=== PATIENT | male | born 1970 | race Hispanic/Latino ===

== ENCOUNTER 2024-09-15 10:59 | Inpatient (IN) | payer OTHER ==
[~2024-09-15] VITALS: Ht 167.6 cm; Wt 70.3 kg
[2024-09-15 11:23] LABS: APPEARANCE,URINE CLEAR (CLEAR); BILIRUBIN,URINE NEGATIVE (NEGATIVE); COLOR,URINE LIGHT-YELLOW (YELLOW); GLUCOSE, URINE (UA) NEGATIVE (NEGATIVE); KETONES,URINE NEGATIVE (NEGATIVE); LEUKOCYTE ESTERASE ,URINE NEGATIVE Leu/uL (NEGATIVE); NITRATE,URINE NEGATIVE (NEGATIVE); OCCULT BLOOD,URINE NEGATIVE (NEGATIVE); PH,URINE 6.5 (5.0-8.0); PROTEIN,URINE NEGATIVE (NEGATIVE); UROBILINOGEN,URINE 0.2 mg/dL (0.2-1.0); WBC,URINE 0-1 /HPF (0-1)
--- NOTE | 2024-09-15 11:24 | NUR ---
PT JUST NOW PLACED ON 2 L VIA N/C
[2024-09-15 11:31] LABS: BASOPHILS # (AUTO) 0.04 K/uL (0.00-0.20); BASOPHILS % (AUTO) 0.5 % (0.0-5.0); EOSINOPHILS % (AUTO) 4.7 % (0.0-8.0); HEMATOCRIT 43.9 % (42-54); IMMATURE GRANULOCYTE ABSOLUTE 0.02 K/uL (0-1); LYMPHOCYTES # (AUTO) 2.2 K/uL (1.0-4.8); LYMPHOCYTES % (AUTO) 25.3 % (21.0-51.0); MEAN CORPUSCULAR HEMOGLOBIN 30.2 pg (27.0-33.0); MEAN CORPUSCULAR HGB CONC 34.2 g/dL (32.0-36.0); MEAN CORPUSCULAR VOLUME 88.5 fL (79-99); MONOCYTES # (AUTO) 0.7 K/uL (0.1-1.0); MONOCYTES % (AUTO) 7.8 % (3.0-13.0); NEUTROPHILS # (AUTO) 5.2 K/uL (1.8-7.7); NEUTROPHILS % (AUTO) 61.5 % (40.0-77.0); PLATELET COUNT (AUTO) 216 K/uL (130-400); RED BLOOD CELL COUNT(AUTO) 4.96 MIL/uL (4.50-6.20); WHITE BLOOD COUNT (AUTO) 8.5 K/uL (4.8-10.8)
--- NOTE | 2024-09-15 11:32 | ERN ---
General Chief Complaint: Chest Pain Stated Complaint: CP Time Seen by MD: 11:04 Time Seen by Midlevel: 11:04 Source: patient History of Present Illness Initial Comments 54 y/o male presents to the emergency department due to chest pain and shortness of breath onset today. Patient reports he was seen yesterday at [facility] ED due to the lower extremity numbness and was diagnosed with a TIA, patient left AMA. Patient reports he has been having a productive cough for the past week but denies any fever, abdominal pain or further associated symptoms. Patient has previously been diagnosed with monoclonal gammopathy. He is seeing oncologist Dr. Rosa and receiving B12 vitamin injections. Allergies: Coded Allergies: No Known Drug Allergies (Unverified Allergy, Unknown, 09/15/24) Past Medical History Past Medical History: TIA, Other Medical History Other: monoclonal gammopathy Past Surgical History: None ROS Dictation Constitutional: Negative for fever,chills, and weight loss Eyes: Negative for injury, pain,redness, and discharge ENT: Negative for injury,pain or swelling Cardiovascular: Positive for chest pain Negative for palpitations, and edema Respiratory: Positive for shortness of breath, productive cough Negative for wheezing Abdomen/GI: Negative for abdominal pain, nausea, vomiting, diarrhea, and constipation Back: Negative for injury and pain : Negative for painful urination, bleeding or discharge MS/Extremity: Negative for injury and deformity Skin: Negative for rash, and discoloration Neuro: Positive for upper lip numbness, right leg weakness, numbness Negative for headache, tingling, and seizure Psych: Negative for suicide ideation, homicidal ideation, and hallucinations Physical Exam Physical Exam Dictation General: awake, alert, no acute distress Head/Face: Normocephalic, atraumatic Eyes: PERRL, EOMI, normal conjunctiva ENT: oral cavity clear, oral mucosa moist Neck: Supple, normal range of motion Cardiovascular: RRR, normal S1/S2 Respiratory: CTAB, no respiratory distress, no rales or wheezes Abdomen: Soft, non-tender, non-distended, no guarding or rebound. Skin: Warm, dry, normal turgor, no rash MS/Extremity: Pulses equal, no cyanosis, neurovascular intact, FROM Neuro: COAx4, GCS 15, strength 5/5, CN 2-12 intact, normal cerebellar exam. Weakness and a drift noted to the right lower extremities Psych: Normal behavior, mood, and affect normal NIH STROKE SCALE: NIH STROKE SCALE Response (Comments) Value Level of Consciousness Alert 0 Ask patient month and their age Answers both correct 0 Command to open eyes, make fist and let go Obeys both correct 0 Best gaze (horizontal eye movement) Normal 0 Visual Field Testing No Visual Field Loss 0 Facial Paresis Normal / Symmetrical 0 Motor Function - Left Arm Normal 0 Motor Function - Right Arm Normal 0 Motor Function - Left Leg Normal 0 Motor Function - Right Leg Drift 1 Limb Ataxia No Ataxia 0 Sensory-pin prick to arms, legs, trunk and face Normal 0 Best Language (describe picture, name items and read) No Aphasia 0 Dysarthria (read several words) Normal Articulation 0 Extinction and Inattention Normal 0 Total 1 Results Laboratory and Microbiology Lab and Micro Result Laboratory Tests Test 09/15/24 11:11 09/15/24 11:25 09/15/24 11:35 Urine Color LIGHT-YELLOW (YELLOW) Urine Appearance CLEAR (CLEAR) Urine pH 6.5 (5.0-8.0) Urine Specific [place] 1.009 (1.001-1.031) Urine Protein NEGATIVE mg/dL (NEGATIVE) Urine Glucose (UA) NEGATIVE mg/dL (NEGATIVE) Urine Ketones NEGATIVE mg/dL (NEGATIVE) Urine Occult Blood NEGATIVE (NEGATIVE) Urine Nitrate NEGATIVE (NEGATIVE) Urine Bilirubin NEGATIVE mg/dL (NEGATIVE) Urine Urobilinogen 0.2 mg/dL (0.2-1.0) Urine Leukocyte Esterase NEGATIVE Claudia/uL Urine RBC None /HPF (0-1) Urine WBC 0-1 /HPF (0-1) Urine Bacteria None /HPF (None Seen) White Blood Count 8.5 K/uL (4.8-10.8) Red Blood Count 4.96 MIL/uL (4.50-6.20) Hemoglobin 15.0 g/dL (14.0-18.0) Hematocrit 43.9 % (42-54) Mean Corpuscular Volume 88.5 fL (79-99) Mean Corpuscular Hemoglobin 30.2 pg (27.0-33.0) Mean Corpuscular Hemoglobin Concent 34.2 g/dL (32.0-36.0) Red Cell Distribution Width 13.0 % (11.0-15.5) Platelet Count 216 K/uL (130-400) Mean Platelet Volume 8.9 fL (7.5-10.5) Immature Granulocyte % (Auto) 0.2 % (0-1) Neutrophils (%) (Auto) 61.5 % (40.0-77.0) Lymphocytes (%) (Auto) 25.3 % (21.0-51.0) Monocytes (%) (Auto) 7.8 % (3.0-13.0) Eosinophils (%) (Auto) 4.7 % (0.0-8.0) Basophils (%) (Auto) 0.5 % (0.0-5.0) Neutrophils # (Auto) 5.2 K/uL (1.8-7.7) Lymphocytes # (Auto) 2.2 K/uL (1.0-4.8) Monocytes # (Auto) 0.7 K/uL (0.1-1.0) Eosinophils # (Auto) 0.40 K/uL (0.00-0.70) Basophils # (Auto) 0.04 K/uL (0.00-0.20) Absolute Immature Granulocyte (auto 0.02 K/uL (0-1) Nucleated Red Blood Cells 0.0 % (0.0-0.19) Prothrombin Time 9.8 SEC (9.6-11.6) Prothromb Time International Ratio <= 0.93 (0.85-1.15) Activated Partial Thromboplast Time 31.9 SEC (26.3-35.5) Sodium Level 139 mmol/L (136-145) Potassium Level 4.1 mmol/L (3.5-5.1) Chloride Level 105 mmol/L (101-111) Carbon Dioxide Level 30 mmol/L (21-32) Blood Urea Nitrogen 11 mg/dL (7-18) Creatinine 0.9 mg/dL (0.5-1.3) Glomerular Filtration Rate Calc 101 mL/min (>90) Random Glucose 113 mg/dL (70-105) H Total Calcium 8.9 mg/dL (8.5-10.1) Troponin I High Sensitivity 5 ng/L (4-75) B-Type Natriuretic Peptide < 5 pg/mL (0-100) Influenza Type A Antigen Negative For Type A Influenza Type B Antigen Negative For Type B SARS-CoV-2 Antigen (Rapid) PRESUMPTIVE NEGATIVE Labs Reviewed?: Yes EKG/XRAY/US/CT/MRI EKG Comment Date: 09/15/24 Time: 1055 Rate: 84 EKG interpretation: Sinus rhythm, LAD consider left anterior fascicular block, no STEMI Reviewed by ED Attending X-RAY Comment REASON: chest pain ORDERING PHYSICIAN: SERENA LEWIS PROCEDURE: CXR1VW - CHEST 1VW INDICATION: chest pain TECHNIQUE: CHEST 1VW COMPARISON: None FINDINGS AND IMPRESSION: Prominent bibasilar interstitial markings which may represent bronchitis or vascular congestion in the proper clinical setting. Cardiac silhouette is within normal limits. Mild degenerative changes of the spine. The visualized upper abdomen appears unremarkable. DICTATED BY: RUT GUERRERO MD DATE: 09/15/[address] Scan Comment REASON: Numbness, Hx TIA ORDERING PHYSICIAN: SERENA LEWIS PROCEDURE: HEAD WO - CT HEAD/BRAIN W/O CONTRAST CT HEAD/BRAIN W/O CONTRAST INDICATION: Numbness, Hx TIA TECHNIQUE: CT HEAD/BRAIN W/O CONTRAST. CT was performed with one or more of the following dose reduction techniques: Automated exposure control, adjustment of the mA and/or kV according to the patient's size, or use of the iterative reconstruction technique. Comparison: None FINDINGS: The ventricles and extra ventricular CSF spaces are within normal limits. No mass effect, midline shift or herniation. No extra axial collection. No acute intracranial bleed. The visualized paranasal sinuses and mastoid air cells are normally aerated. IMPRESSION: No acute intracranial findings. DICTATED BY: RUT GUERRERO MD DATE: 09/15/24 1220 MDM MDM: Differential diagnosis: TIA, CVA, [place], pneumonia Rationale: 54 y/o male presents to the emergency department due to chest pain and shortness of breath onset today. Patient reports he was seen yesterday at [facility] ED due to the lower extremity numbness and was diagnosed with a TIA, patient left AMA. Patient reports he has been having a productive cough for the past week but denies any fever, abdominal pain or further associated symptoms. Patient has previously been diagnosed with monoclonal gammopathy. He is seeing oncologist Dr. Rosa and receiving B12 vitamin injections. On initial vitals patient is stable. Patient denied any current chest pain. Per physical examination patient is in no acute distress, nonlabored breathing, abdomen is soft nontender, no chest tenderness. Patient placed on 2 L of O2 nasal cannula for comfort measures, due to O2 saturations fluctuating between 94 and 96%. NIH score of 1 due to right lower extremity drift. Labs obtained CBC within normal limits, chemistry normal, troponin negative, PT and PTT normal. UA negative for urinary tract infections. Influenza and SARs negative. Chest x- ray obtained indicating prominently bibasilar interstitial markings representing bronchitis otherwise no acute findings. Head CT shows no acute intracranial findings. Patient was educated on findings, diagnosis, decision for admission. Patient verbalized understanding and agrees with admission. Case discussed with hospitalist Dr. Bray who requested neurologist to be consulted to confirm he is on board on the case otherwise recommended transfer to [facility]. cell room supervisor discussed case with neurologist Dr. Washington who accepted. Previous outside records reviewed: Old ER visits. Risk of complication and/or morbidity or mortality of patient management: None Medications-Per medication reconciliation Need for hospitalization: Patient does meet criteria for hospitalization. Need for emergency major/minor surgery: No There are no social concerns with this patient. Prescription drug management Prescriptions will include symptomatic care Patient's prior external medical records from other ER visits were reviewed by me as indicated. Prior testing and results from previous visits were reviewed. Prior tests were taken into account with medical decision making and resource utilization, independent historian/historians were used to obtain complete m edical history. I independently interpreted the test that were performed, results were reviewed by me and considered findings on radiology if ordered. Medical management and examination interpretation discussions were had by me with other qualified healthcare professionals as indicated for the patient's care. ED Course Orders Procedure Category Date Status Time Cbc With Differential LAB 09/15/24 Complete 11:11 Basic Metabolic Panel LAB 09/15/24 Complete 11:11 Urinalysis LAB 09/15/24 Complete W/Microscopic 11:11 B-Type Natriuretic LAB 09/15/24 Complete Peptide 11:11 Troponin I High LAB 09/15/24 Complete Sensitivity 11:11 12 Lead Ekg Tracing- EKG 09/15/24 Complete Technical 11:11 Pt And Ptt LAB 09/15/24 Complete 11:11 Chest 1vw RAD 09/15/24 Resulted 11:11 Covid19 (Sars Antigen LAB 09/15/24 Complete Rapid) 11:20 Influenza Type A & B, LAB 09/15/24 Complete Rapid 11:20 Ct Head/Brain W/O CT 09/15/24 Resulted Contrast 11:25 Vital Signs Date Time Temp Pulse Resp B/P (MAP) Pulse Ox O2 Delivery O2 Flow Rate FiO2 09/15/24 11:04 98.2 89 20 122/79 96 Room Air* 0 21 09/15/24 11:00 98.2 89 20 122/79 DX & DISP Disposition: Inpatient Decision to Admit Date: Sep 15, 2024 Departure Impression: Primary Impression: TIA (transient ischemic attack) Additional Impression: Numbness of right lower extremity Condition: Stable Referrals: SELF,REFERRAL (PCP) I performed the substantive portion of the visit. I have reviewed and personally made and approve the management plan that is documented in the notes by myself or the FAUSTINA. I acknowledge full responsibility for the patient's management plan. SERENA LEWIS Sep 15, 2024 11:32
[2024-09-15 11:38] LABS: CREATININE 0.9 mg/dL (0.5-1.3); POTASSIUM 4.1 mmol/L (3.5-5.1)
[2024-09-15 11:41] LABS: INR <= 0.93 (0.85-1.15); PROTHROMBIN TIME 9.8 SEC (9.6-11.6)
[2024-09-15 11:42] LABS: PARTIAL THROMBOPLASTIN TIME 31.9 SEC (26.3-35.5)
[2024-09-15 11:58] LABS: B-TYPE NATRIURETIC PEPTIDE < 5 pg/mL (0-100)
[2024-09-15 12:07] LABS: COVID19 (SARS ANTIGEN RAPID) PRESUMPTIVE NEGATIVE (NEGATIVE); INFLUENZA TYPE A Negative For Type A (NEGATIVE); INFLUENZA TYPE B Negative For Type B (NEGATIVE)
--- NOTE | 2024-09-15 12:23 | HMCIMG ---
CT HEAD/BRAIN W/O CONTRAST INDICATION: Numbness, Hx TIA TECHNIQUE: CT HEAD/BRAIN W/O CONTRAST. CT was performed with one or more of the following dose reduction techniques: Automated exposure control, adjustment of the mA and/or kV according to the patient's size, or use of the iterative reconstruction technique. Comparison: None FINDINGS: The ventricles and extra ventricular CSF spaces are within normal limits. No mass effect, midline shift or herniation. No extra axial collection. No acute intracranial bleed. The visualized paranasal sinuses and mastoid air cells are normally aerated. IMPRESSION: No acute intracranial findings.
--- NOTE | 2024-09-15 12:36 | NUR ---
Patient stated he does not take any home medications.
--- NOTE | 2024-09-15 13:03 | HMCIMG ---
INDICATION: chest pain TECHNIQUE: CHEST 1VW COMPARISON: None FINDINGS AND IMPRESSION: Prominent bibasilar interstitial markings which may represent bronchitis or vascular congestion in the proper clinical setting. Cardiac silhouette is within normal limits. Mild degenerative changes of the spine. The visualized upper abdomen appears unremarkable.
--- NOTE | 2024-09-15 13:48 | EKG ---
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
--- NOTE | 2024-09-15 17:09 | NUR ---
vital signs before patient was transfered: blood pressure 104/76 mmHg o2 saturation 99% respirations 19 p/min pulse 74 p/min temperature 98.2
[2024-09-15 17:38] VITALS: BP 108/72; PULSE 66; RESP 16; TEMP 97.9
--- NOTE | 2024-09-15 18:31 | HMCIMG ---
Exam Type: MR BRAIN WO CON Clinical Information: R/O CVA OR TIA Comparison: None Technique: T1 weighed sagittal, T1-weighted axial, T2-weighted axial, diffusion, apparent diffusion, exponential diffusion weighted axial, T2-weighted FLAIR sagittal, coronal and axial images of the brain. Findings: The examination is unremarkable. Ortega-white matter junction is preserved. No intra or extra axial lesions or fluid collections are seen. There are no infarcts. There are no hemorrhages. Signal intensity is normal throughout the periventricular white matter locations. The orbital contents and structures of the posterior fossa are intact. The sella and its contents and the structures of the skull base are intact as well. Impression: Normal exam without gadolinium.
[2024-09-15 20:00] VITALS: BP 121/73; PULSE 72; RESP 20; TEMP 98.5
[2024-09-15 21:11] VITALS: O2SAT 100
[2024-09-16] VITALS (9 sets, daily range): BP systolic 99–120; BP diastolic 66–76; PULSE 64–81; RESP 16–20; TEMP 98–98.4; O2SAT 94–100
[2024-09-16 05:15] LABS: BASOPHILS # (AUTO) 0.03 K/uL (0.00-0.20); BASOPHILS % (AUTO) 0.5 % (0.0-5.0); EOSINOPHILS # (AUTO) 0.47 K/uL (0.00-0.70); EOSINOPHILS % (AUTO) 7.7 % (0.0-8.0); HEMATOCRIT 42.5 % (42-54); IMMATURE GRANULOCYTE ABSOLUTE 0.02 K/uL (0-1); LYMPHOCYTES # (AUTO) 2.2 K/uL (1.0-4.8); LYMPHOCYTES % (AUTO) 36.1 % (21.0-51.0); MEAN CORPUSCULAR HEMOGLOBIN 30.6 pg (27.0-33.0); MEAN CORPUSCULAR HGB CONC 34.6 g/dL (32.0-36.0); MEAN CORPUSCULAR VOLUME 88.4 fL (79-99); MONOCYTES # (AUTO) 0.6 K/uL (0.1-1.0); NEUTROPHILS # (AUTO) 2.8 K/uL (1.8-7.7); NEUTROPHILS % (AUTO) 45.4 % (40.0-77.0); PLATELET COUNT (AUTO) 208 K/uL (130-400); RED BLOOD CELL COUNT(AUTO) 4.81 MIL/uL (4.50-6.20); RED CELL DISTRIBUTION WIDTH 12.9 % (11.0-15.5); WHITE BLOOD COUNT (AUTO) 6.1 K/uL (4.8-10.8)
[2024-09-16 05:22] LABS: ALBUMIN 3.5 g/dL (3.5-5.0); BILIRUBIN,TOTAL 0.5 mg/dL (0.2-1.0); POTASSIUM 4.3 mmol/L (3.5-5.1); TOTAL PROTEIN, SERUM 6.1 g/dL (6.0-8.3)
[2024-09-16] MEDS: ASPIRIN 81 MG EC TAB PO SCH (09:58)
--- NOTE | 2024-09-16 14:33 | NUR ---
DCP: HOME Pt currently living with his mother and aunt in a mobile home with ramp. Pt works a [employer], is independent of his ADLS, drives, no DME or in home care services. PCP is Sandra and uses [facility] for rx needs. DCP is home Sister Stephanie Alonso [phone] is Er contact Addendum: 09/16/24 at 1434 by CLARI FRYE Amended: Links added.
[2024-09-16] MEDS ORDERED: cefTRIAXone 1G VIAL IVPB SCH (15:00)
[2024-09-16] MEDS ORDERED: IpraTROPium/alBUTERol SULFATE 3 ML SOLUTION IH PRN (15:00)
--- NOTE | 2024-09-16 15:55 | HMCSR ---
APPROVED REPORT EXAM: Two-dimensional and M-mode echocardiogram with Doppler and color Doppler. INDICATION ICD: Rule out cerebrovascular attack 2D Dimensions RVDd3.4 cmLVEF(%)54.2 (>50%)LVED Vol(simp.)60.0 mL IVSd0.9 (0.7-1.1cm)FS(%)28 %LVES Vol(simp.)24.0 mL LVDd4.2 (3.8-5.6cm)LA (2D)3.8 (1.6-4.0cm)LVEF(%, simp.)60 % PWd0.7 (0.7-1.1cm)Ao Root(2D)3.1 (2.0-3.7cm)LA ESV INDEX (BP)14.05 mL/m2 IVSs0.7 cmLVOT diam2.1 (1.8-2.4cm) LVDs3.0 (2.5-4.0cm)IVC diam1.7 cm PWs1.1 cm Deformation Strain Apical 4-18.9 % Apical 2-18.6 % Apical 3-18.7 % Global Strain-18.7 % M-Mode Dimensions EPSS0.8 cm LA (MM)4.3 (1.6-4.0cm) Ao Root(MM)3.3 (2.0-3.7cm) Aortic Valve AoV Vmax1.4 m/Sandra Peak GR7.8 mmHgLVOT Vmax1.1 m/s AoV VTI0.3 mAo Mean GR4.8 mmHgLVOT VTI0.20 m FRANSISCO (VMAX)2.63 cm2AVA (VTI) 2.5 cm2 Mitral Valve MV E Vmax54.2 cm/sDECEL Eaco374 ms MV A Vmax53.1 cm/sP 1/2 T72 ms E/A ratio1.0MVA (PHT)3.1 cm2 TDI E/E' Medial7.3E/E' Lateral5.7 Medial E' Peak V7.39 cm/sLateral E' Peak V9.55 cm/s Pulmonary Valve PV Vmax0.8 m/sPV VTI0.18 mPV Mean GR1.5 mmHg PV Peak GR2.3 mmHgPI End Lamar. Vivek 87.6 cm/s Tricuspid Valve TR Vmax1.2 m/sRAP (EST) 3 mmHgRVSP9.0 mmHg TR Peak GR6.0 mmHg Left Ventricle The left ventricle is normal size. GLS -18.0%. There is normal LV segmental wall motion. There is nor mal left ventricular wall thickness. LVEF is 60-65%. 3D volume EF 61%. The left ventricular diastolic function is normal. Right Ventricle The right ventricle is normal size. RV FAC 43%. RV GLS -21.0%. The right ventricular systolic functio n is normal. Atria The left atrium size is normal. No evidence of PFO/ASD by color doppler. The right atrium size is nor mal. Aortic Valve The aortic valve is trileaflet normal in structure. No aortic regurgitation is present. There is no a ortic valvular stenosis. Mitral Valve The mitral valve is normal in structure. There is no mitral valve regurgitation noted. There is no mi tral valve stenosis. Tricuspid Valve The tricuspid valve is normal in structure. There is trace of tricuspid valve regurgitation noted. Pulmonic Valve The pulmonary valve is normal in structure. There is trace of pulmonic valvular regurgitation. Great Vessels The aortic root is normal in size. The IVC is normal in size and collapses >50% with inspiration. Pericardium There is no pericardial effusion. Other Information Quality : Adequate Conclusion LVEF is 60-65%. 3D volume EF 61%. The left ventricular diastolic function is normal.
--- NOTE | 2024-09-16 18:17 | CONS ---
CONSULTATION NOTE Date of Service: Sep 16, 2024 Reason for Consultation: Evaluation of headaches and numbness Requesting Physician: Hospitalist HISTORY OF PRESENT ILLNESS: Mr. Zavala, a right-handed male with a history of monoclonal gammopathy and minor neuropathy, presents with complaints of leg weakness, numbness in the mouth, and headaches. The patient reports experiencing weakness in his right leg on Tuesday, describing it as feeling "really heavy" and being unable to move it for 3-5 minutes. He mentions having broken this leg in the but states it is unrelated to the current issue. The weakness persists, though it is not constant. Mr. Zavala also complains of numbness in his mouth, which started this year. This symptom has been recurrent, coming and going. He visited [facility] in [place] due to these symptoms, where he was diagnosed with a TIA. However, he left the hospital after being given the option to do so, as the numbness had subsided at that time. The numbness returned later, prompting his current hospital visit. The patient describes experiencing severe headaches throughout his life. These headaches are characterized as bifrontal and occipital, with a stabbing quality. During these episodes, rated 10/10 in intensity, he reports sensitivity to light and sound, as well as associated nausea. These severe headaches occur about 2-3 times per year, lasting a couple of days. His current headache is milder, rated 3/10, localized to the frontal region, and described as a pressure sensation, particularly when wearing glasses. He denies light or sound sensitivity with the current headache. Mr. Zavala reports no anxiety or stress related to his symptoms. 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 He lives with his mother, who has trouble walking, and he helps care for her. He denies any recent significant life stressors. The patient states he does not have multiple sclerosis, epilepsy, or any current tumors. He mentions being previously told he had epilepsy and a stomach tumor, but these diagnoses were later questioned or disproven. He has not been officially diagnosed with cancer. Medical History - Anxiety - Depression - Minor neuropathy - Monoclonal gammopathy (diagnosis uncertain) - Hypertension - Hypercholesterolemia - Migraine headaches (lifelong history) - Right leg fracture in the - Recent emergency room visit for suspected TIA Surgical History - Leg fracture repair in the Family History - Mother: Has trouble walking - Uncles (father's brothers): Mentioned, but no specific medical information provided Social History - Marital Status: - Children: Has children - Living Situation: Lives with mother - Occupation: Works in maintenance and technology for [employer] - Family Structure: Father is alive but lives separately REVIEW OF SYSTEMS CONSTITUTIONAL: Denies fever, chills, or fatigue. HEAD/FACE: No signs of trauma. EENT: Denies eye pain, blurred vision, double vision, or light sensitivity. RESPIRATORY: Denies shortness of breath, cough, wheezing CARDIOVASCULAR: Denies chest pain, palpitation, syncope GASTROINTESTINAL/ABDOMINAL: Denies abdominal pain, constipation, diarrhea, nausea or vomiting GENITOURINARY: Denies dysuria or hematuria. MUSCULOSKELETAL: Denies joint pain, tenderness, or trauma. INTEGUMENTARY: Denies rash or itchiness NEUROLOGICAL/PSYCH: headaches and numbness. PAST MEDICAL HISTORY: Migraines PAST SURGICAL HISTORY: none PAST SOCIAL HISTORY: none FAMILY HISTORY: No family of headaches migraines Coded Allergies: No Known Drug Allergies (Unverified Allergy, Unknown, 09/15/24) PHYSICAL EXAM Mental status: The patient is alert, attentive, and oriented. Speech is clear and fluent with good repetition, comprehension, and naming. Pt recalls 3/3 objects at 5 minutes. Cranial nerves: CN II: Visual rutledge are full to confrontation. CN III, IV, : At primary gaze, there is no eye deviation. CN V: Facial sensation is intact to pinprick in all 3 divisions bilaterally. Corneal responses are intact. CN VII: Face is symmetric with normal eye closure and smile. CN VIII: Hearing is normal to rubbing fingers CN IX, X: Palate elevates symmetrically. Phonation is normal. CN XI: Head turning and shoulder shrug are intact CN XII: Tongue is midline with normal movements and no atrophy. Motor: There is no pronator drift of out-stretched arms. Muscle bulk and tone are normal. Strength is full bilaterally. Give away weakness in the right lower extremity Reflexes: Reflexes are 2+ and symmetric at the biceps, triceps, knees, and ankles. Plantar responses are flexor. Sensory: Light touch, pinprick, position sense, and vibration sense are intact in fingers and toes. Coordination: Rapid alternating movements and fine finger movements are intact. There is no dysmetria on [id number] and tjsz-[id number]-[id number]. There are no abnormal or extraneous movements. Romberg is absent. Gait/Stance: Not evaluated Vital Sign (Last 24 Hours) 09/16/24 09/16/24 09/16/24 08:00 15:07 16:10 Temp 98.1 Pulse 74 Resp 16 B/P (MAP) 107/69 Pulse Ox 94 O2 Delivery Room Air O2 Flow Rate 0 FiO2 21 LABS: Laboratory: Test 09/16/24 04:54 09/15/24 11:35 09/15/24 11:25 09/15/24 11:11 Range/Units White Blood Count 6.1 # 4.8-10.8 K/uL Red Blood Count 4.81 4.50-6.20 MIL/uL Hemoglobin 14.7 14.0-18.0 g/dL Hematocrit 42.5 42-54 % Mean Corpuscular Volume 88.4 79-99 fL Mean Corpuscular Hemoglobin 30.6 27.0-33.0 pg Mean Corpuscular Hemoglobin Concent 34.6 32.0-36.0 g/dL Red Cell Distribution Width 12.9 11.0-15.5 % Platelet Count 208 130-400 K/uL Mean Platelet Volume 9.3 7.5-10.5 fL Immature Granulocyte % (Auto) 0.3 0-1 % Neutrophils (%) (Auto) 45.4 40.0-77.0 % Lymphocytes (%) (Auto) 36.1 21.0-51.0 % Monocytes (%) (Auto) 10.0 3.0-13.0 % Eosinophils (%) (Auto) 7.7 0.0-8.0 % Basophils (%) (Auto) 0.5 0.0-5.0 % Neutrophils # (Auto) 2.8 1.8-7.7 K/uL Lymphocytes # (Auto) 2.2 1.0-4.8 K/uL Monocytes # (Auto) 0.6 0.1-1.0 K/uL Eosinophils # (Auto) 0.47 0.00-0.70 K/uL Basophils # (Auto) 0.03 0.00-0.20 K/uL Absolute Immature Granulocyte (auto 0.02 0-1 K/uL Nucleated Red Blood Cells 0.0 0.0-0.19 % Sodium Level 139 136-145 mmol/L Potassium Level 4.3 3.5-5.1 mmol/L Chloride Level 104 101-111 mmol/L Carbon Dioxide Level 29 21-32 mmol/L Blood Urea Nitrogen 16 7-18 mg/dL Creatinine 1.0 0.5-1.3 mg/dL Glomerular Filtration Rate Calc 89 >90 mL/min Random Glucose 99 70-105 mg/dL Total Calcium 8.6 8.5-10.1 mg/dL Total Bilirubin 0.5 0.2-1.0 mg/dL Aspartate Amino Transf (AST/SGOT) 20 10-37 U/L Alanine Aminotransferase (ALT/SGPT) 26 12-78 U/L Alkaline Phosphatase 80 50-136 U/L Total Protein 6.1 6.0-8.3 g/dL Albumin 3.5 3.5-5.0 g/dL Influenza Type A Antigen Negative For Type A NEGATIVE Influenza Type B Antigen Negative For Type B NEGATIVE SARS-CoV-2 Antigen (Rapid) PRESUMPTIVE NEGATIVE NEGATIVE Prothrombin Time 9.8 9.6-11.6 SEC Prothromb Time International Ratio <= 0.93 0.85-1.15 Activated Partial Thromboplast Time 31.9 26.3-35.5 SEC Troponin I High Sensitivity 5 4-75 ng/L B-Type Natriuretic Peptide < 5 0-100 pg/mL Urine Color LIGHT-YELLOW YELLOW Urine Appearance CLEAR CLEAR Urine pH 6.5 5.0-8.0 Urine Specific [place] 1.009 1.001-1.031 Urine Protein NEGATIVE NEGATIVE mg/dL Urine Glucose (UA) NEGATIVE NEGATIVE mg/dL Urine Ketones NEGATIVE NEGATIVE mg/dL Urine Occult Blood NEGATIVE NEGATIVE Urine Nitrate NEGATIVE NEGATIVE Urine Bilirubin NEGATIVE NEGATIVE mg/dL Urine Urobilinogen 0.2 0.2-1.0 mg/dL Urine Leukocyte Esterase NEGATIVE NEGATIVE Claudia/uL Urine RBC None 0-1 /HPF Urine WBC 0-1 0-1 /HPF Urine Bacteria None None Seen /HPF DIAGNOSTICS / RADIOLOGY: MRI of the brain without contrast: Negative for stroke ASSESSMENT / PLAN: Mr. Zavala, a middle-aged male with a history of monoclonal gammopathy and minor neuropathy, presents with complaints of right leg weakness, numbness in the mouth, and recurrent headaches. Recurrent migraine headaches Assessment: Patient reports a history of severe headaches occurring 2-3 times per year, characterized as 10/10 intensity, bifrontal and occipital, stabbing in nature, with associated photophobia, phonophobia, and nausea. These episodes typically last for a couple of days. Patient also experiences milder headaches (3/10 intensity) localized to the frontal region, without associated symptoms. Family history of migraines is reported. Given the clinical presentation and negative neuroimaging, these headaches are most consistent with migraine, including both severe episodic migraines and milder tension-type headaches. Plan: - Start topiramate 25 mg PO qhs for migraine prophylaxis - Educate patient on migraine triggers and lifestyle modifications - Recommend [id number] pain relievers like Excedrin Migraine for acute episodes - Follow up to assess efficacy of prophylactic treatment Transient neurological symptoms Assessment: Patient reports episodes of right leg weakness and numbness in the mouth. Recent ED visits resulted in a diagnosis of TIA, but MRI shows no evidence of stroke or other intracranial pathology. Given the transient nature of symptoms, recurrence in the same distribution, and negative imaging, these episodes are less likely to represent true TIAs. Differential diagnosis includes atypical migraine aura (complex migraine) or possible anxiety-related symptoms with hyperventilation leading to metabolic changes and paresthesias. True TIA remains a possibility but is considered less likely given the clinical picture. Plan: - Reassure patient that MRI shows no evidence of stroke - Educate on symptoms of true stroke vs. atypical migraine aura - Encourage relaxation techniques and stress management - Monitor for any progression or new neurological symptoms - Follow up with neurologist in [facility] on September 26, 2024, as scheduled Monoclonal gammopathy of undetermined significance (MGUS) Assessment: Patient reports a history of monoclonal gammopathy diagnosed in [id number], though expresses uncertainty about the diagnosis. No recent testing or follow-up is mentioned. Given the potential for progression to more serious conditions, this requires further evaluation and monitoring. Plan: - by primary team patient will benefit from serum protein electrophoresis and immunofixation to confirm MGUS diagnosis - Consult with hematology/oncology for appropriate follow-up and monitoring - Educate patient on the nature of MGUS and importance of regular monitoring Minor neuropathy Assessment: Patient reports a history of minor neuropathy, though details are limited. This condition may be related to the monoclonal gammopathy or could be a separate entity. Further evaluation is needed to determine the extent and cause of the neuropathy. Plan: - Perform detailed neurological examination focusing on sensory and motor function - Consider nerve conduction studies and EMG if clinically indicated as an outpatient - Correlate findings with MGUS workup and overall clinical picture Thank you for your consultation. I will sign off. MARIJA SANCHES MD Sep 16, 2024 18:17
[2024-09-16] MEDS: cefTRIAXone 1G VIAL IVPB SCH (18:18)
[2024-09-16] MEDS: topIRAMate 25 MG TABLET PO ONE (18:39)
[2024-09-16] MEDS: Solu-medROL 40MG VIAL IVP SCH (21:19)
[2024-09-17] VITALS (9 sets, daily range): BP systolic 99–120; BP diastolic 62–83; PULSE 69–93; RESP 18–20; TEMP 97.8–98.1; O2SAT 94–97
[2024-09-17 04:18] LABS: BASOPHILS # (AUTO) 0.01 K/uL (0.00-0.20); BASOPHILS % (AUTO) 0.2 % (0.0-5.0); EOSINOPHILS # (AUTO) 0.02 K/uL (0.00-0.70); EOSINOPHILS % (AUTO) 0.3 % (0.0-8.0); HEMATOCRIT 44.4 % (42-54); IMMATURE GRANULOCYTE ABSOLUTE 0.03 K/uL (0-1); LYMPHOCYTES # (AUTO) 1.2 K/uL (1.0-4.8); LYMPHOCYTES % (AUTO) 18.7 % (21.0-51.0); MEAN CORPUSCULAR HEMOGLOBIN 29.9 pg (27.0-33.0); MEAN CORPUSCULAR HGB CONC 33.8 g/dL (32.0-36.0); MEAN CORPUSCULAR VOLUME 88.6 fL (79-99); MONOCYTES # (AUTO) 0.1 K/uL (0.1-1.0); MONOCYTES % (AUTO) 1.1 % (3.0-13.0); NEUTROPHILS % (AUTO) 79.2 % (40.0-77.0); PLATELET COUNT (AUTO) 212 K/uL (130-400); RED BLOOD CELL COUNT(AUTO) 5.01 MIL/uL (4.50-6.20); RED CELL DISTRIBUTION WIDTH 12.5 % (11.0-15.5); WHITE BLOOD COUNT (AUTO) 6.3 K/uL (4.8-10.8)
[2024-09-17 04:41] LABS: ALBUMIN 3.6 g/dL (3.5-5.0); BILIRUBIN,TOTAL 0.5 mg/dL (0.2-1.0); POTASSIUM 4.2 mmol/L (3.5-5.1); TOTAL PROTEIN, SERUM 6.6 g/dL (6.0-8.3)
[2024-09-17 08:36] LABS: HEMOGLOBIN A1C 5.5 % (4.0-6.0)
[2024-09-17 09:03] LABS: CHOLESTEROL 175 mg/dL (<200); HDL CHOLESTEROL 43 mg/dL (29-71); LDL DIRECT 119 mg/dL (0-99); TRIGLYCERIDES 66 mg/dL (30-200)
--- NOTE | 2024-09-17 09:24 | HP ---
HISTORY OF PRESENT ILLNESS: The patient of Dr. Flores, came to the Emergency Room complaining of right-sided extremity weakness and right-sided face paresis that started 24 hours prior to visit to the ER. The patient was seen few days ago at hospital in [place] where he was diagnosed with a TIA and apparently was given an appointment with a neurologist in the next couple of weeks. The patient refers that he was feeling better at the time of discharge from [facility] and symptoms recurred the day before coming to the Emergency Room here in [place]. Also, the patient refers that he has had these symptoms for several months in the past on and off and had been diagnosed with monoclonal gammopathy and being followed by a local air bag curer/oncologist. ALLERGIES: None. PAST MEDICAL HISTORY: Monoclonal gammopathy. TIA. REVIEW OF SYSTEMS: No fever or chills. No seizure or loss of consciousness. No diplopia, dysarthria, dysphonia, or dysphagia. The patient has been complaining of productive cough for the last week with associated wheezing. No chest pain, palpitations, or dizziness. No abdominal pain. No nausea, vomiting, or diarrhea. No dysuria, urgency, or frequency. No hematemesis, melena, hematuria, or rectal bleeding. No rashes, petechiae, or ecchymosis. No hallucinations or delusions. No suicidal ideations. Neurologic deficit as mentioned above. PHYSICAL EXAMINATION: GENERAL: He is currently awake, alert, oriented in person, time and place, not in distress. VITAL SIGNS: In the chart. Blood pressure 104/68, pulse 78, respirations 18. HEENT: Normocephalic and atraumatic. LUNGS: Decreased breath sounds bilaterally with productive cough and expiratory wheezes. HEART: S1, S2 are distant. ABDOMEN: Soft, nontender. No masses. EXTREMITIES: No clubbing or cyanosis, no edema. NEUROLOGIC: Cranial nerves 2-12 grossly preserved. No gross motor, no sensory defects. DIAGNOSTIC DATA: Chest x-ray reported as prominent bibasilar interstitial markings. Cardiac silhouette within normal limits. Mild degenerative changes of the spine. Head CT, no acute intracranial findings. Brain MRI shows normal exam. ASSESSMENT AND PLAN: * Right-sided neurological deficit, recovered completely. No evidence of an acute CVA on CT scan or MRI, pending results of further testing, pending neurology consultation. * Continue current treatment. * Acute bronchitis: The patient will be started on Rocephin IV, DuoNeb q. 6 hours and Solu-Medrol 80 mg b.i.d. * Follow up by Dr. Flores in [place] TID: [id number] RECEIPT: [id number]
--- NOTE | 2024-09-17 16:03 | NUR ---
Nutrition consult per admit trigger Reviewed labs, notes, and medications. Pt on HH diet, BG 157(H), no A1C, lipid panel, vit. D or b12 labs per chart review. Wt via standing scale, 100% PO intake, no edema, well nourished, no wounds per nursing. Pending labs to provide nutrition education. Recommendations: -Provide HH diet -Monitor PO intake -Monitor BM -If no BM >3 days consider stool softener -Monitor electrolytes -Replenish electrolytes per protocol -Monitor wts -Reweigh as able -Order Vit D, vit b-12 labs to rule out deficiencies -Order lipid panel, A1C -Provide MVI QD -Texture per HIP HOP DANCE INSTRUCTOR recs -Recommend Pt to follow up with PCP -Monitor goals of care RD to follow + available for consult per protocol Addendum: 09/17/24 at [address] Amended: Links added.
--- NOTE | 2024-09-17 22:31 | PN ---
PROGRESS NOTE PROGRESS NOTE DATE OF PROGRESS NOTE: 09/17/24 SUBJECTIVE: feels better VITAL SIGNS Vital Signs Date Time Temp Pulse Resp B/P (MAP) Pulse Ox O2 Delivery O2 Flow Rate FiO2 09/17/24 20:00 98.1 70 20 107/71 95 Room Air 09/17/24 19:18 21 09/17/24 08:00 0 PHYSICAL EXAM: HEENT: Normocephalic and atraumatic. LUNGS: Decreased breath sounds bilaterally with productive cough and expiratory wheezes. HEART: S1, S2 are distant. ABDOMEN: Soft, nontender. No masses. EXTREMITIES: No clubbing or cyanosis, no edema. NEUROLOGIC: Cranial nerves 2-12 grossly preserved. No gross motor, no sensory defects. LABORATORY: Laboratory Result(s) Test 09/17/24 04:00 White Blood Count 6.3 K/uL (4.8-10.8) Red Blood Count 5.01 MIL/uL (4.50-6.20) Hemoglobin 15.0 g/dL (14.0-18.0) Hematocrit 44.4 % (42-54) Mean Corpuscular Volume 88.6 fL (79-99) Mean Corpuscular Hemoglobin 29.9 pg (27.0-33.0) Mean Corpuscular Hemoglobin Concent 33.8 g/dL (32.0-36.0) Red Cell Distribution Width 12.5 % (11.0-15.5) Platelet Count 212 K/uL (130-400) Mean Platelet Volume 9.2 fL (7.5-10.5) Immature Granulocyte % (Auto) 0.5 % (0-1) Neutrophils (%) (Auto) 79.2 % (40.0-77.0) Lymphocytes (%) (Auto) 18.7 % (21.0-51.0) Monocytes (%) (Auto) 1.1 % (3.0-13.0) Eosinophils (%) (Auto) 0.3 % (0.0-8.0) Basophils (%) (Auto) 0.2 % (0.0-5.0) Neutrophils # (Auto) 5.0 K/uL (1.8-7.7) Lymphocytes # (Auto) 1.2 K/uL (1.0-4.8) Monocytes # (Auto) 0.1 K/uL (0.1-1.0) Eosinophils # (Auto) 0.02 K/uL (0.00-0.70) Basophils # (Auto) 0.01 K/uL (0.00-0.20) Absolute Immature Granulocyte (auto 0.03 K/uL (0-1) Nucleated Red Blood Cells 0.0 % (0.0-0.19) Sodium Level 139 mmol/L (136-145) Potassium Level 4.2 mmol/L (3.5-5.1) Chloride Level 104 mmol/L (101-111) Carbon Dioxide Level 29 mmol/L (21-32) Blood Urea Nitrogen 18 mg/dL (7-18) Creatinine 1.0 mg/dL (0.5-1.3) Glomerular Filtration Rate Calc 89 mL/min (>90) Random Glucose 157 mg/dL (70-105) Hemoglobin A1c 5.5 % (4.0-6.0) Estimated Average Glucose (eAG) 111 mg/dL (70-126) Total Calcium 8.9 mg/dL (8.5-10.1) Total Bilirubin 0.5 mg/dL (0.2-1.0) Aspartate Amino Transf (AST/SGOT) 16 U/L (10-37) Alanine Aminotransferase (ALT/SGPT) 25 U/L (12-78) Alkaline Phosphatase 88 U/L (50-136) Total Protein 6.6 g/dL (6.0-8.3) Albumin 3.6 g/dL (3.5-5.0) Triglycerides Level 66 mg/dL (30-200) Cholesterol Level 175 mg/dL (<200) LDL Cholesterol 119 mg/dL (0-99) HDL Cholesterol 43 mg/dL (29-71) Vitamin B12 Level 491 pg/mL (193-986) INPATIENT MEDS: Current Medications Medications Dose Ordered Sig/Kraan Start Time Stop Time Status Last Admin Aspirin 81 mg DAILY 09/16/24 09:00 10/16/24 08:59 09/17/24 09:42 Albuterol 1 UDVIAL Q6H PRN 09/16/24 15:00 10/16/24 14:59 Methylprednisolone Sodium Succinate 80 mg Q12H9 09/16/24 21:00 10/16/24 20:59 09/17/24 21:18 Ceftriaxone Sodium 1 gm Q24H 09/16/24 18:30 09/26/24 18:29 09/17/24 18:34 PROBLEM LIST: (1) TIA (transient ischemic attack) ICD Code: G45.9 - Transient cerebral ischemic attack, unspecified (2) Numbness of right lower extremity ICD Code: R20.0 - Anesthesia of skin PLAN: ASSESSMENT AND PLAN: * Right-sided neurological deficit, recovered completely. No evidence of an acute CVA on CT scan or MRI, pending results of further testing, pending neurology consultation. * Continue current treatment. * Acute bronchitis: The patient will be started on Rocephin IV, DuoNeb q. 6 hours and Solu-Medrol 80 mg b.i.d. GAETANO RIDLEY MD Sep 17, 2024 22:31
[2024-09-18] VITALS: BP 107/74; PULSE 63; RESP 18; TEMP 97.9
[2024-09-18 04:00] VITALS: BP 100/63; PULSE 67; RESP 18; TEMP 97.7
[2024-09-18 06:22] VITALS: PULSE 75; RESP 18; O2SAT 96
--- NOTE | 2024-09-18 07:00 | NUR ---
PATIENT WAS DISCHARGED PAPERS AND DC INSTRUCTIONS WAS GIVEN BY NIGHT NURSE
--- NOTE | 2024-09-18 07:47 | NUR ---
NURSING NOTES PATIENT SEEN BY DR. RIDLEY THIS MORNING AROUND 0630, INSTRUCTED THAT HE NEEDS TO COME TO THE OFFICE IN 2 DAYS AFTER DISCHARGE. DISCHARGE PAPERS WERE GIVEN AND EXPLAINED TO PATIENT, UNDERSTANDING VERBALIZED. SIGNED BY PATIENT. INSTRUCTED THAT PRESCRIPTION WAS ALREADY SENT TO HIS PHARMACY PER DR. RIDLEY. PATIENT DISCHARGED VIA WHEELCHAIR @ AROUND 07:45 IN STABLE CONDITION.
--- NOTE | 2024-09-18 21:26 | DS ---
Discharge Summary DIAGNOSE(S): [Acute bronchitis Dehydration] HOSPITAL COURSE SUMMARY: [Patient presented with weakness and cough was treated with steroids and bronchodilators and antibiotics patient did well is being discharged on steroids and antibiotics] BEACH ATTENDANT(S): [] PROCEDURE(S)/TREATMENT(S): [] PROBLEM(S): [] FOLLOW-UP TEST(S): [] DISCHARGE INSTRUCTIONS: [None follow up in 1-2 days] Home Meds No Active Prescriptions or Reported Meds GAETANO RIDLEY MD Sep 18, 2024 21:26
== END 2024-09-18 07:45 | disposition home or self-care (01) | DRG 69 ==
LOC: EDH 10:59 → EDHIP 15:18 → 4BH 17:11
PROVIDERS: ADMIT Internal Medicine; ATTEND Internal Medicine
DX: G45.9 Transient cerebral ischemic attack, unspecified (principal); D47.2 Monoclonal gammopathy; J20.9 Acute bronchitis, unspecified; G62.9 Polyneuropathy, unspecified; G40.909 Epilepsy, unspecified, not intractable, without status epilepticus; Z20.822 Contact with and (suspected) exposure to COVID-19; F41.9 Anxiety disorder, unspecified; F32.A Depression, unspecified; I10 Essential (primary) hypertension; E78.00 Pure hypercholesterolemia, unspecified; G43.909 Migraine, unspecified, not intractable, without status migrainosus; G44.209 Tension-type headache, unspecified, not intractable; Z53.29 Procedure and treatment not carried out because of patient's decision for other reasons; E86.0 Dehydration; R29.818 Other symptoms and signs involving the nervous system; Z79.899 Other long term (current) drug therapy
CPT/HCPCS: 36415; 70450; 70551; 71045; 76376; 80048; 80053; 80061; 81001; 82306; 82607; 83036; 83880; 84484; 85025; 85610; 85730; 87426; 87804; 93005; 93306; 93356; 94664; 99285; G0378; J0696; J2919

== ENCOUNTER → 2025-01-21 | Outpatient (CLI) | payer OTHER ==
[~2025-01-21] MED LIST: IOHEXOL 350 MG/ML 100ML INFUS..BTL IV ONE
--- NOTE | 2025-01-23 22:15 | CARDIOLOGY ---
RAD REPORT: CORNARY CT ANGIO RADIOLOGY REPORT: CORONARY CT ANGIOGRAPHY DATE: Jan 23, 2025 QUALITY: Excellent CLINICAL HISTORY AND INDICATION: [ AGUILERA ] TECHNIQUE: After obtaining a preliminary wind project manager image, contrast imaging performed on an Aquillon [id number] scanner. A dedicated, limited window, coronary imaging protocol was used, with single breath-hold, retrospective ECG gating, and automated arrhythmia rejection. 100 cc of low osmolar contrast agent: Omnipaque 350 was delivered via a 18-gauge IV catheter in the right antecubital fossa, using a power injector and followed by 60 cc of normal saline bolus as a chaser. Collimated images were reformatted at 0.5 mm intervals, and sent to an offline independent workstation for interpretation, using 3D anatomic reconstructions: Curved multiplanar reconstructions, maximum intensity projections, and multiplanar imaging. No metoprolol was administered prior to scanning due to low baseline heart rate. 0.4 mg SL nitroglycerin was given. CORONARY ARTERY DESCRIPTIONS: The coronary arteries arise in normal position. Left main coronary artery: Normal caliber vessel that bifurcates into the LAD and LCx. No stenosis. Left anterior descending coronary artery: Normal caliber vessel and gives rise to diagonal and septal branches. No stenosis. Left circumflex coronary artery: Normal caliber, nondominant and gives rise to two OM branches. No stenosis. Right coronary artery: Large, dominant vessel giving rise to the PL and PDA branches. No stenosis. CAD-RADs: 0, absence of CAD. Thoracic Aorta: Normal diameter. Talisha Lopez MD Cardiovascular Disease [facility] TALISHA LOPEZ MD Jan 23, 2025 22:15
== END | disposition home or self-care (01) ==
LOC: RAH 08:13
PROVIDERS: ATTEND Internal Medicine Cardiovascular Disease
DX: R07.9 Chest pain, unspecified (principal)
CPT/HCPCS: 75574; Q9967

== ENCOUNTER → 2025-02-26 | Outpatient (CLI) | payer OTHER ==
--- NOTE | 2025-02-27 02:38 | HMCIMG ---
STUDY: ABDOMINAL ULTRASOUND CLINICAL INFORMATION: Abdominal distension. TECHNIQUE: Transabdominal ultrasound examination of the abdomen was performed using grayscale imaging with color Doppler applied as needed. COMPARISON: None provided. FINDINGS: LIVER: The liver measures approximately 14.3 cm in craniocaudal length and is normal in size. Hepatic parenchyma appears normal without focal lesion on the provided study. No intrahepatic biliary ductal dilatation is described. GALL BLADDER: Gallbladder is normal in size and configuration with a wall thickness of approximately 3 mm. No gallstones, luminal mass, or pericholecystic abnormality is reported. BILIARY TREE: The common bile duct measures approximately 5 mm in diameter, within normal limits for caliber. No extrahepatic biliary ductal dilatation is described. PANCREAS: The pancreas is reported as normal in size and echotexture. No focal pancreatic abnormality is described. RIGHT KIDNEY: The right kidney measures approximately 9.6 x 4.8 x 5.6 cm and is normal in size. No focal renal lesion or other abnormality is described. LEFT KIDNEY: The left kidney measures approximately 10.1 x 5.4 x 5.2 cm and is normal in size. An echogenic focus with posterior acoustic shadowing is present in the superior pole, measuring approximately 10 x 10 mm, consistent with a renal calculus. No additional left renal abnormality is described. SPLEEN: The spleen measures approximately 9.2 cm in length and is normal in size and echotexture without focal lesion. AORTA AND IVC: The visualized abdominal aorta and inferior vena cava are normal in caliber and contour without described aneurysmal dilatation or intraluminal abnormality. FREE FLUID: No free intraperitoneal fluid is identified. IMPRESSION: * Superior pole left renal calculus measuring approximately 10 x 10 mm. * Otherwise sonographically unremarkable abdominal ultrasound with normal liver, gallbladder, biliary tree, pancreas, right kidney, spleen, aorta, and inferior vena cava, and no sonographic evidence of ascites to account for the reported abdominal distension. /[place]
== END | disposition home or self-care (01) ==
LOC: RAH 09:16
PROVIDERS: ATTEND Nurse Practitioner Family
DX: N20.0 Calculus of kidney (principal); R19.4 Change in bowel habit; R14.0 Abdominal distension (gaseous)
CPT/HCPCS: 76700